=== PATIENT | female | born 2005 | race Hispanic/Latino ===

== ENCOUNTER 2024-03-26 22:17 | Emergency (ER) | payer OTHER, SELFPAY ==
[2024-03-26] MEDS ORDERED: Ondansetron ODT 4 MG TAB ONE (23:50)
== END 2024-03-26 23:55 | disposition home or self-care (01) ==
LOC: CSHERS 22:17
DX: B34.9 Viral infection, unspecified (principal)
CPT/HCPCS: 87428; 99283; Q0162